=== PATIENT | female | born 1975 | race Caucasian/White ===

== ENCOUNTER 2017-06-14 06:08 | Inpatient (IN) | payer OTHER ==
[2017-06-14 06:46] VITALS: BMI 32.4
[2017-06-14] MEDS ORDERED: Carboprost 250 MCG/ML AMP IM PRN (07:36)
[2017-06-14] MEDS ORDERED: LR / Pitocin 40 units/1000 ml 1,000 ML IV PRN (07:36)
[2017-06-14] MEDS ORDERED: Lidocaine 1% (PF) 30 ML VIAL SC PRN (07:36)
[2017-06-14] MEDS ORDERED: Ondansetron HCl/PF 4 MG/2 ML Vial IVP PRN ×2 (07:36→10:40)
[2017-06-14] MEDS ORDERED: Misoprostol 200 MCG TAB PR PRN (07:36)
[2017-06-14] MEDS ORDERED: Promethazine HCl 25 MG/ML VIAL IM PRN ×2 (07:36→10:40)
[2017-06-14] MEDS ORDERED: Lactated Ringer's 1,000 ML IV SCH (07:45)
[2017-06-14 07:50] LABS: #Basophils 0.1 thou/uL (0.0-0.2); #Eosinphils 0.1 thou/uL (0.0-0.7); #Lymphocytes 1.2 thou/uL (1.20-3.40); #Monocytes 0.9 thou/uL (0.11-0.59); #Neutrophils 10.5 thou/uL (1.40-6.50); %Basophils 0.7 % (0.0-1.0); %Eosinophils 0.5 % (0.0-10.0); %Lymphocytes 9.6 % (21.0-51.0); Hematocrit 37.2 % (36.0-47.0); Mean Platelet Volume 7.4 fL (7.4-10.4); Red Blood Cell (RBC) Count 3.99 mill/uL (4.20-5.40); White Blood Cell (WBC) Count 12.8 thou/uL (4.8-10.8)
[2017-06-14] MEDS ORDERED: Labetalol HCl 100 MG/20 ML VIAL ONE (07:54)
[2017-06-14] MEDS: Acetaminophen 500 MG TAB PO PRN ×2 (08:07→19:21)
[2017-06-14] MEDS ORDERED: Morphine 4 MG/ML Carpuject SLOW IVP SCH (08:15)
[2017-06-14 08:22] LABS: ALT (SGPT) 44 U/L (8-55); AST (SGOT) 37 U/L (5-34); Alkaline Phosphatase 190 U/L (40-150); Anion Gap 13 mmol/L (10-20); BUN (Urea Nitrogen) 11 mg/dL (7.0-18.7); Bilirubin, Total 0.2 mg/dL (0.2-1.2); Calc. Creatinine Clearance 156 mL/min (70-130); Calcium 9.6 mg/dL (7.8-10.44); Carbon Dioxide 21 mmol/L (22-29); Chloride 105 mmol/L (98-107); Estimated GFR-MDRD Greater than 90; Protein, Total 7.2 g/dL (6.0-8.3)
[2017-06-14] MEDS ORDERED: Labetalol HCl 100 MG/20 ML VIAL SLOW IVP SCH (08:30)
[2017-06-14] MEDS ORDERED: Fentanyl 4 mcg/Marc 0.1% Cadd 100 ML ONE (09:34)
[2017-06-14] MEDS: LR 500 ML/Oxytocin 10 units 500 ML IV SCH ×2 (10:39→22:18)
[2017-06-14] MEDS ORDERED: Naloxone HCl 0.4 mg/ml Vial IVP PRN ×2 (10:40)
[2017-06-14] MEDS ORDERED: Eucerin (Mineral Oil/Petrolatum,White) 30 gm Jar TOP PRN (10:40)
[2017-06-14] MEDS ORDERED: ePHEDrine/0.9% NaCl/PF SYRINGE 50 mg/10 ml SLOW IVP PRN (10:40)
[2017-06-14] MEDS ORDERED: Lactated Ringer's 500 ML IV PRN (10:40)
[2017-06-14] MEDS ORDERED: Acetaminophen 325 MG TAB PO PRN (10:40)
[2017-06-14] MEDS ORDERED: diphenhydrAMINE 50 MG/ML VIAL IVP PRN (10:40)
[2017-06-14] MEDS ORDERED: Communication Order-Pharmacy FS SCH (10:45)
[2017-06-14] MEDS: Lactated Ringer's 1,000 ML IV SCH ×2 (10:48→22:02)
[2017-06-14 11:26] LABS: Bilirubin Negative (Negative); Blood, Urine Negative (Negative); Glucose, Urine (Dipstick) Negative (Negative); Ketone, Urine 15 mg/dL (Negative); Nitrite Negative (Negative); Protein, Urine (Dipstick) 100 mg/dL (Neg-Trace); Urobilinogen 0.2 mg/dL (0.2-1.0)
[2017-06-14 11:28] LABS: Bacteria/HPF None Seen HPF (None Seen); Hyaline Casts/LPF 0-3 HYALINE CAST LPF (0-3 Hyaline); RBC/HPF 0-3 HPF (0-3); Squamous Epithelial 0-3 HPF (0-3); WBC/HPF 0-3 HPF (0-3)
[2017-06-14] MEDS: Fentanyl 4mcg/Marcaine 0.1% Cassette 100 ML EPIDURAL SCH (17:43)
[2017-06-15] MEDS ORDERED: Calcium Carbonate 500 MG ChewTAB PO PRN (00:15)
[2017-06-15] MEDS: Fentanyl 4mcg/Marcaine 0.1% Cassette 100 ML EPIDURAL SCH ×2 (01:01→05:26)
[2017-06-15] MEDS: Lactated Ringer's 1,000 ML IV SCH ×2 (06:08→21:57)
[2017-06-15] MEDS: Dextrose 5%-Lactated Ringers 1,000 ML IV SCH ×2 (06:09→21:57)
[2017-06-15] MEDS ORDERED: Carboprost 250 MCG/ML AMP ONE (07:54)
--- NOTE | 2017-06-15 08:39 | PDOC.LDPN ---
Labor & Delivery Progress Note - Subjective Subjective: comfortable - Objective Vital signs reviewed and normal: yes General: resting Dilation: 10 Effacement: 100% Station: 1+ FHT: category 1 Redby contractions every: 4 - Assessment (1) 41 weeks gestation of Code(s): Z3A.41 - 41 WEEKS GESTATION OF Current Visit: Yes Status : Acute Plan: continue plan of care -: Pt was admitted yesterday by [facility] w PROM and has slowly progressed to 10cm/100/+ 1. FHT reassuring, pushing technique discussed. Transition to 2nd stage.
[2017-06-15] MEDS ORDERED: Bicitra 30 ML UDCUP PO SCH (12:00)
[2017-06-15] MEDS ORDERED: CEFAZOLIN/Water 2 GM/20 ML SYRINGE SLOW IVP SCH (12:00)
--- NOTE | 2017-06-15 12:10 | PDOC.LDPN ---
Labor & Delivery Progress Note - Subjective Subjective: comfortable - Objective Vital signs reviewed and normal: yes General: breathing through contractions FHT: category 1 - Assessment (1) 41 weeks gestation of Code(s): Z3A.41 - 41 WEEKS GESTATION OF Current Visit: Yes Status : Acute Plan: other -: A?P: Pushing x 2 hrs with minimal descent. Discussed continue x 1 hr, reevaluate, CS if arrest of descent noted.
--- NOTE | 2017-06-15 12:33 | PDOC.LDPN ---
Labor & Delivery Progress Note - Subjective Subjective: comfortable - Objective Vital signs reviewed and normal: yes General: resting - Assessment (1) 41 weeks gestation of Code(s): Z3A.41 - 41 WEEKS GESTATION OF Current Visit: Yes Status : Acute Plan: other -: A/P: Pt request CS, continued pushing with no descent noted, risk and benefits discussed. To OR for arrest of 2nd stage.
[2017-06-15] MEDS ORDERED: Fentanyl 100 MCG/2 ML VIAL ONE (12:36)
[2017-06-15] MEDS ORDERED: ePHEDrine/0.9% NaCl/PF SYRINGE 50 mg/10 ml ONE (13:08)
[2017-06-15] MEDS ORDERED: Oxytocin 10 UNITS/ML VIAL ONE (13:15)
[2017-06-15] MEDS ORDERED: Ondansetron HCl/PF 4 MG/2 ML Vial ONE ×2 (13:15→14:05)
[2017-06-15] MEDS ORDERED: Morphine PF 1 MG/ML SYR ONE ×2 (13:16→13:17)
--- NOTE | 2017-06-15 13:16 | HP ---
DATE OF SERVICE: 06/14/2017 CHIEF COMPLAINT: Leakage of fluid. HISTORY OF PRESENT ILLNESS: At the time of presentation, Kortney is a 42-year-old 1, para 0 female at 41 weeks 0 days who presents with complaints of leakage of clear fluid since 03:15 this mor maia. She denies any vaginal bleeding. She reports good movement. She does report some mild contractions that started after she broke her bag of water. Patient also complains of headache and d ifficulty catching her breath approximately 6 o'clock this morning. She also reports some nausea and vomiting. She denies any diarrhea or scotomata. She denies any other cardiovascular or respiratory complaints. Of note, patient was scheduled for induction of labor tonight. Limited review of systems as per HPI. HISTORY: Please see labor and delivery admission record included by reference. PHYSICAL EXAMINATION: VITAL SIGNS: Blood pressure is 140s-170s/80s-100s, pulse 80s, respiratory rate 18, temperature 98.5. GENERAL: Nontoxic appearing female in no acute distress. Obstetric heart tracing is 120s and reactive. Tocodynamometer shows contractions every 3-5 minutes. CHEST: Clear to auscultation. CARDIOVASCULAR: Regular rate and rhythm. ABDOMEN: Gravid, nontender in the right upper quadrant, nondistended, no rebound, no guarding. EXTREMITIES: Without cyanosis or clubbing. There is 1+ edema. NEUROLOGIC: Alert and oriented x3. No focal deficits. ASSESSMENT: 1. Term intrauterine with category 1 tracing. 2. Rupture of membranes. The patient's cervix is currently 1 cm dilated. She will be reexamined in approximately 2 hours and if unchanged, induction will be initiated at that time. 3. Gestational hypertension, possible preeclampsia. CBC, CMP and urine protein creatinine ratio ord ered in addition to the routine admission labs. Additionally, patient was given 1 dose of labetalol 10 mg IV for severe range of blood pressures. Should the patient's blood pressures require any furth er treatment or it shows lab work just HELLP syndrome, she will be placed on magnesium. Questions we re answered to patient's and her 's satisfaction.
--- NOTE | 2017-06-15 14:05 | PDOC.OPDEL ---
OB Operative/Delivery Note Delivery Dr/Surgeon: Evert Assist: Praveena Pre-Delivery Diagnosis: other (failed 2nd stage) Weeks gestation: 41 Anesthesia: epidural - Findings A Sex: male Weight: 9 lb 1 oz - 1 min: 8 - 5 min: 9 - Additional Findings/Plan Placenta delivered: manual removal Repaired Obstetrical Laceration: none findings: low transverse hysterotomy without extension Estimated blood loss: 800ml Compilations/Other Findings: concern for cross contamination of cervix/vag sergio during the case, Clindamycin ordered for prophylaxis Post delivery plan: routine recovery
[2017-06-15] MEDS ORDERED: Clindamycin/D5W 900 MG in Premix Bag 1 BAG IVPB SCH (14:30)
--- NOTE | 2017-06-15 14:43 | OP ---
DATE OF PROCEDURE: 06/14/2017 PREOPERATIVE DIAGNOSES: 1. A 42-year-old G1 at 41 weeks. 2. Arrest of descent. PROCEDURES PERFORMED: Primary low transverse section. SURGEON: Suraj Loyd D.O. AUTO PARTS PROFESSIONAL: Matteo Grissom M.D. POSTOPERATIVE DIAGNOSIS: A 42-year-old status post primary low transverse section. COMPLICATIONS: None. ESTIMATED BLOOD LOSS: 800 mL. OPERATIVE FINDINGS: 1. Low transverse hysterotomy without extension. 2. Normal-appearing uterus, tubes, and ovaries bilaterally. 3. Adherent placental membranes removed from the uterus with ring forceps and curettage with dry lap , vigorous male , weight 9 pounds 1 ounce, Apgars 8 and 9, to nursery. PROCEDURE DETAILS: The patient was taken back to the OR with IV fluids running. Once she was in the operating room, she was placed in dorsal supine position with a left lateral tilt. The epidural had been dosed and a Buck catheter had previously been placed and was noted to be draining a light bloo d-tinged colored urine. The abdomen was prepped and draped in normal fashion for section. The surgeons were scrubbed in. The abdomen was tested and anesthesia was found to be adequate. A Pf annenstiel skin incision was made with the scalpel. The skin incision was carried down through the s ubcutaneous tissue until the fascia was reached. Once the fascia was reached, it was incised in the midline and extended superior laterally using curved Cuellar scissors. Yolanda clamps were then placed o n the superior border of the fascia, which was sharply and bluntly dissected off the rectus abdominis muscles. In similar fashion, Yolanda clamps were placed on the inferior border of the fascia, which was dissected down towards the pubic symphysis. The rectus muscles and peritoneum were entered and b luntly stretched. The bladder was noted to be edematous and the lower uterine segment was noted to b e thin on palpation. A bladder flap was created using Metzenbaum scissors and the bladder was dissec martine away from the planned hysterotomy site. A low transverse hysterotomy was made with the scalpel. The hysterotomy was bluntly entered with clear fluid noted and stretched superolaterally using the K err maneuver. The infant's head was then delivered without difficulty through the hysterotomy follow ed by the body. A double nuchal cord was noted and was reduced after delivery of the head before del lolita of the body. The cord was doubly clamped and cut. Nose and mouth were suctioned and the infan t was handed off to special care nurses in attendance. Cord blood was collected. The placenta was d elivered. Trailing membranes of the placenta were noted to be densely adhered to the uterine decidua and were removed with ring forceps and gentle curettage with a sterile sponge. After the placenta m embranes were removed, the hysterotomy was inspected, no extensions were noted; however, the cervix w as easily visualized through the hysterotomy. Concerns for possible vaginal contamination due to the proximity of the cervix to the hysterotomy was discussed and a prophylactic dose of clindamycin will be ordered. The hysterotomy was closed with Monocryl suture in a running lock fashion. After closu re of the hysterotomy, it was inspected and noted to be hemostatic. The fundus was massaged and note d to be firm. The hysterotomy and pericolic gutters were copiously irrigated and suctioned dry. The hysterotomy was inspected again with no areas of bleeding noted. The rectus muscles were inspected as well as the fascia with no bleeding noted. The fascia was closed with PDS suture in a running fas hion from corner to corner. The subcutaneous tissue was irrigated and dried, and small areas of blee ding that were seen were controlled with Bovie cauterization. Subcutaneous tissue was reapproximated with chromic suture and the skin was closed with 4-0 Monocryl. Dermabond dressing was applied over the skin incision. The uterus was noted to be firm again at the end of the case. The patient tolera martine the procedure well. There were no complications.
[2017-06-15] MEDS ORDERED: Meperidine HCl/PF 25 MG/ML VIAL SLOW IVP PRN (15:34)
[2017-06-15] MEDS ORDERED: HYDROmorphone 2 MG/ML VIAL SLOW IVP PRN (15:34)
[2017-06-15] MEDS ORDERED: Ondansetron HCl/PF 4 MG/2 ML Vial IVP PRN ×3 (15:34→16:27)
[2017-06-15] MEDS ORDERED: Ketorolac Tromethamine 30 MG/ML VIAL ONE (15:35)
[2017-06-15] MEDS ORDERED: Ketorolac Tromethamine 30 MG/ML VIAL IVP SCH (15:45)
[2017-06-15] MEDS ORDERED: Lanolin Ointment 7 GM TUBE TOP PRN (15:47)
[2017-06-15] MEDS ORDERED: Lactated Ringer's 1,000 ML IV SCH (15:47)
[2017-06-15] MEDS ORDERED: Promethazine HCl 25 MG/ML VIAL IM PRN ×2 (15:47→16:27)
[2017-06-15] MEDS ORDERED: diphenhydrAMINE 25 MG CAP PO PRN (15:47)
[2017-06-15] MEDS ORDERED: Bisacodyl 10 MG SUPP PR PRN (15:47)
[2017-06-15] MEDS ORDERED: Simethicone Chewable 80 MG TAB PO PRN (15:47)
[2017-06-15] MEDS ORDERED: diphenhydrAMINE 50 MG/ML VIAL IVP PRN (16:27)
[2017-06-15] MEDS ORDERED: Eucerin (Mineral Oil/Petrolatum,White) 30 gm Jar TOP PRN (16:27)
[2017-06-15] MEDS ORDERED: Naloxone HCl 0.4 mg/ml Vial IVP PRN ×2 (16:27)
[2017-06-15] MEDS ORDERED: Naloxone HCl 0.4 mg/ml Vial IV PRN (16:27)
[2017-06-15] MEDS ORDERED: Promethazine HCl 25 MG SUPP PR PRN (16:27)
[2017-06-15] MEDS ORDERED: Communication Order-Pharmacy FS SCH (16:30)
[2017-06-15] MEDS ORDERED: LR / Pitocin 40 units/1000 ml 1,000 ML IV SCH (18:00)
[2017-06-15] MEDS ORDERED: Morphine PF 1 MG/ML SYR IVP PRN (18:18)
[2017-06-15] MEDS ORDERED: Bupivacaine HCl 0.5%/Epinephrine 1:200,000/PF 30 ml Vial ONE (19:41)
[2017-06-15] MEDS ORDERED: Sodium Chloride 0.9% 10 ML ONE (19:42)
[2017-06-15] MEDS: Docusate (Surfak) 240 MG CAP PO SCH (21:25)
[2017-06-15] MEDS: Ferrous Sulfate 325 MG TAB PO SCH (21:26)
[2017-06-15] MEDS: Ketorolac Tromethamine 30 MG/ML VIAL IVP PRN (21:27)
[2017-06-15] MEDS ORDERED: Ibuprofen 800 MG TAB PO SCH (22:00)
[2017-06-16] MEDS: Ketorolac Tromethamine 30 MG/ML VIAL IVP PRN (03:12)
[2017-06-16 05:09] LABS: Hematocrit 29.1 % (36.0-47.0); Red Blood Cell (RBC) Count 3.08 mill/uL (4.20-5.40)
--- NOTE | 2017-06-16 08:22 | PDOC.PP ---
Post Progress Note Post Day #: 1 Subjective: doing well, very tired, ambulated to RR, pain controlled, trying to breast feeding, some latch issues PO intake tolerated: yes Flatus: no Ambulation: yes Vital Signs (12 hours) Temp Pulse Resp BP Pulse Ox 06/16/17 03:12 98.5 F 98 20 119/68 96 06/16/17 00:10 98.0 F 93 18 135/78 96 Weight Weight 195 lb - Physical Examination General: NAD Respiratory: non-labored breathing Abdominal: lochia (normal), no distention, appropriately TTP Fundus firm & at: below umb Extremities: negative homans (B) Skin: CS incision dry & intact, no rash Neurological: no gross focal deficits Psychiatric: A&Ox3, normal affect Result Diagrams: 06/16/17 04:43 06/14/17 07:15 Additional Labs: Post Labs Blood Type O POSITIVE 06/14/17 07:15 Hep Bs Antigen Non-Reactive S/CO (NonReactive) 06/14/17 07:15 (1) 41 weeks gestation of Code(s): Z3A.41 - 41 WEEKS GESTATION OF Status: Acute (2) Delivered by section Code(s): O82 - ENCOUNTER FOR DELIVERY WITHOUT INDICATION Status: Acute - Assessment/Plan A/P: POD 1 sp 1LTCS for arrest of descent. Doing well, LC pending, advancing orders.
[2017-06-16] MEDS ORDERED: Measles/Mumps/Rubella 10 MCG/0.5 ML VIAL SC ONE (09:00)
[2017-06-16] MEDS: Ferrous Sulfate 325 MG TAB PO SCH ×2 (09:52→21:32)
[2017-06-16] MEDS: Prenatal Vitamin 1 TAB PO SCH (09:52)
[2017-06-16] MEDS: Docusate (Surfak) 240 MG CAP PO SCH ×2 (09:53→21:32)
[2017-06-16] MEDS: Acetaminophen/Codeine 30-300mg Tablet PO PRN ×4 (09:53→23:13)
[2017-06-16] MEDS: Ibuprofen 800 MG TAB PO SCH ×2 (14:47→21:33)
[2017-06-17] MEDS: Acetaminophen/Codeine 30-300mg Tablet PO PRN ×5 (03:18→22:44)
[2017-06-17] MEDS: Ibuprofen 800 MG TAB PO SCH ×3 (06:07→22:34)
[2017-06-17] MEDS: Ferrous Sulfate 325 MG TAB PO SCH ×2 (08:08→22:34)
[2017-06-17] MEDS: Docusate (Surfak) 240 MG CAP PO SCH ×2 (08:08→22:34)
[2017-06-17] MEDS: Prenatal Vitamin 1 TAB PO SCH (08:08)
--- NOTE | 2017-06-17 14:33 | PDOC.PP ---
Post Progress Note Post Day #: 2 Subjective: got baby to latch, very tired PO intake tolerated: yes Flatus: yes Ambulation: yes Vital Signs (12 hours) Temp Pulse Resp BP 06/17/17 12:20 98.2 F 87 18 137/85 06/17/17 12:00 98.2 F 87 18 06/17/17 08:10 97.6 F 85 18 134/85 06/17/17 08:00 97.6 F 85 18 06/17/17 05:15 97.9 F 87 20 136/74 Weight Weight 195 lb - Physical Examination General: NAD Respiratory: non-labored breathing Abdominal: lochia (normal), no distention Fundus firm & at: below umb Skin: CS incision dry & intact, no rash Psychiatric: A&Ox3, normal affect Result Diagrams: 06/16/17 04:43 06/14/17 07:15 Additional Labs: Post Labs Blood Type O POSITIVE 06/14/17 07:15 Hep Bs Antigen Non-Reactive S/CO (NonReactive) 06/14/17 07:15 (1) 41 weeks gestation of Code(s): Z3A.41 - 41 WEEKS GESTATION OF Status: Acute (2) Delivered by section Code(s): O82 - ENCOUNTER FOR DELIVERY WITHOUT INDICATION Status: Acute - Assessment/Plan A/P: POD 2, doing well. Plan for DC tomorrow.
[2017-06-18] MEDS: Acetaminophen/Codeine 30-300mg Tablet PO PRN ×4 (03:07→20:53)
[2017-06-18] MEDS: Ibuprofen 800 MG TAB PO SCH ×3 (06:52→20:33)
[2017-06-18] MEDS: Docusate (Surfak) 240 MG CAP PO SCH ×2 (08:02→20:32)
[2017-06-18] MEDS: Ferrous Sulfate 325 MG TAB PO SCH ×2 (08:02→20:33)
[2017-06-18] MEDS: Prenatal Vitamin 1 TAB PO SCH (08:02)
[2017-06-18 08:49] LABS: #Eosinphils 0.2 thou/uL (0.0-0.7); #Lymphocytes 1.7 thou/uL (1.20-3.40); #Monocytes 0.7 thou/uL (0.11-0.59); #Neutrophils 11.8 thou/uL (1.40-6.50); %Basophils 0.3 % (0.0-1.0); %Eosinophils 1.5 % (0.0-10.0); %Lymphocytes 11.8 % (21.0-51.0); %Monocytes 4.8 % (0.0-10.0); Hematocrit 29.3 % (36.0-47.0); Mean Platelet Volume 6.2 fL (7.4-10.4); Red Blood Cell (RBC) Count 3.07 mill/uL (4.20-5.40); White Blood Cell (WBC) Count 14.5 thou/uL (4.8-10.8)
--- NOTE | 2017-06-18 08:57 | PDOC.PP ---
Post Progress Note Post Day #: 3 Subjective: Pt with increase swelling, no GARCIA or blurry vision. Normal lochia. No SOB, ambulating well. PO intake tolerated: yes Flatus: yes Ambulation: yes Vital Signs (12 hours) Temp Pulse Resp BP BP Pulse Ox 06/18/17 07:52 150/85 H 06/18/17 07:48 98.0 F 93 20 179/94 H 97 06/18/17 05:00 98.3 F 99 20 153/90 H 06/17/17 23:50 98.2 F 95 20 164/85 H Weight Weight 195 lb - Physical Examination General: NAD Respiratory: non-labored breathing Abdominal: no distention Extremities: negative homans (B) (pitting edema feet, trace edema to knee and hands) Skin: CS incision dry & intact, no rash Psychiatric: A&Ox3, normal affect Result Diagrams: 06/18/17 08:36 06/14/17 07:15 Additional Labs: Post Labs Blood Type O POSITIVE 06/14/17 07:15 Hep Bs Antigen Non-Reactive S/CO (NonReactive) 06/14/17 07:15 (1) 41 weeks gestation of Code(s): Z3A.41 - 41 WEEKS GESTATION OF Status: Acute (2) Delivered by section Code(s): O82 - ENCOUNTER FOR DELIVERY WITHOUT INDICATION Status: Acute - Assessment/Plan POD3: Concern for PIH/GHTN with new onset elevated BP last 8 hrs. Discussed PIH warnings and ECONOMIC ANALYSIS DIRECTOR sx with pt, if develops will need Magnesium for seizure prophylaxis. Discussed lasix for swelling while on PP today. Will continue to monitor, CBC and CMP pending.
[2017-06-18] MEDS ORDERED: Furosemide 20 MG TAB PO SCH ×2 (09:00→17:24)
[2017-06-18 09:10] LABS: ALT (SGPT) 44 U/L (8-55); AST (SGOT) 50 U/L (5-34); Alkaline Phosphatase 168 U/L (40-150); Anion Gap 6 mmol/L (10-20); BUN (Urea Nitrogen) 8 mg/dL (7.0-18.7); Bilirubin, Total 0.3 mg/dL (0.2-1.2); Calc. Creatinine Clearance 139 mL/min (70-130); Calcium 8.9 mg/dL (7.8-10.44); Carbon Dioxide 27 mmol/L (22-29); Chloride 107 mmol/L (98-107); Estimated GFR-MDRD 86; Globulin 3.2 g/dL (2.4-3.5)
[2017-06-18] MEDS ORDERED: NIFEdipine XL 30 MG TAB PO PRN (17:25)
--- NOTE | 2017-06-18 17:32 | PDOC.EVN ---
Event Note - Event Note Event Note: Notified by pt RN today that significant diuresis today sp one dose of Lasix. Pt feeling very well. Discussed HOLD PM dose of Lasix if BP <140/90 (last BP 120s/60s) and only start Procardia tonight if severe range BP noted again.
[2017-06-19 06:06] LABS: ALT (SGPT) 46 U/L (8-55); AST (SGOT) 37 U/L (5-34); Alkaline Phosphatase 138 U/L (40-150); Anion Gap 8 mmol/L (10-20); BUN (Urea Nitrogen) 10 mg/dL (7.0-18.7); Bilirubin, Total 0.2 mg/dL (0.2-1.2); Calc. Creatinine Clearance 141 mL/min (70-130); Calcium 8.8 mg/dL (7.8-10.44); Carbon Dioxide 26 mmol/L (22-29); Chloride 104 mmol/L (98-107); Estimated GFR-MDRD 87; Protein, Total 5.6 g/dL (6.0-8.3)
[2017-06-19] MEDS: Ibuprofen 800 MG TAB PO SCH ×2 (06:20→15:06)
[2017-06-19] MEDS ORDERED: Furosemide 20 MG TAB PO SCH (08:15)
[2017-06-19] MEDS: Ferrous Sulfate 325 MG TAB PO SCH (08:35)
[2017-06-19] MEDS: Docusate (Surfak) 240 MG CAP PO SCH (08:35)
[2017-06-19] MEDS: Prenatal Vitamin 1 TAB PO SCH (08:35)
--- NOTE | 2017-06-19 08:53 | PDOC.PP ---
Post Progress Note Post Day #: 4 Subjective: feeling much better, no GARCIA, no blurry vision, less swelling, no SOB PO intake tolerated: yes Flatus: yes Ambulation: yes Vital Signs (12 hours) Temp Pulse Resp BP BP BP 06/19/17 08:00 98.0 F 91 16 143/89 H 06/19/17 05:30 98.2 F 88 20 152/87 H 06/19/17 02:10 98 162/90 H 06/19/17 02:00 97.9 F 98 20 162/90 H 06/18/17 22:00 93 20 155/87 H Weight Weight 195 lb - Physical Examination General: NAD Respiratory: clear to auscultation bilaterally, non-labored breathing Abdominal: no distention Fundus firm & at: below umb Extremities: negative homans (B) Skin: CS incision dry & intact, no rash Neurological: no gross focal deficits Psychiatric: A&Ox3, normal affect Result Diagrams: 06/18/17 08:36 06/19/17 05:20 Additional Labs: Post Labs Blood Type O POSITIVE 06/14/17 07:15 Hep Bs Antigen Non-Reactive S/CO (NonReactive) 06/14/17 07:15 (1) 41 weeks gestation of Code(s): Z3A.41 - 41 WEEKS GESTATION OF Status: Acute (2) Delivered by section Code(s): O82 - ENCOUNTER FOR DELIVERY WITHOUT INDICATION Status: Acute (3) induced hypertension Code(s): O13.9 - GESTATIONAL HTN W/O SIGNIFICANT PROTEINURIA, UNSP TRIMESTER Status: Acute - Assessment/Plan POD 4 1LCS for arrest of descent complicated PP by elevated BP/PIH noted on POD 3. Approx 8L diuresis yesterday, will repet lasix @ 10mg x 1 today. Procardia 30 mg started last night and BP mild range this AM. Plan for likely DC today if BP stable with BP check and incision check in the office on Thursday.
[2017-06-19] MEDS: Acetaminophen/Codeine 30-300mg Tablet PO PRN (16:19)
[2017-06-19 17:20] VITALS: BP 148/90; TEMP 98
== END 2017-06-19 20:07 | disposition home or self-care (01) | DRG 766 ==
LOC: L&D/OP 06:08 → L&D 06:30 → 3SW 06-15 15:57
PROVIDERS: ADMIT Obstetrics & Gynecology; ATTEND Obstetrics & Gynecology
PROC: 10D00Z1 Extraction of Products of Conception, Low, Open Approach (ICD-10-PCS; principal; 2017-06-14)
DX: O13.4 Gestational [pregnancy-induced] hypertension without significant proteinuria, complicating childbirth (principal); O42.02 Full-term premature rupture of membranes, onset of labor within 24 hours of rupture; O62.1 Secondary uterine inertia; Z3A.41 41 weeks gestation of pregnancy; Z37.0 Single live birth; O69.81X0 Labor and delivery complicated by cord around neck, without compression, not applicable or unspecified
CPT/HCPCS: 36415; 80053; 81001; 82570; 84156; 85025; 85027; 86780; 86850; 86900; 86901; 87340; 90707; A4216; J0670; J1885; J2270; J2274; J2405; J2590; J3010; J3490; J7120

== ENCOUNTER 2018-08-13 12:45 | Outpatient (CLI) | payer OTHER ==
--- NOTE | 2018-08-13 14:52 | ULT ---
LEFT BREAST DIAGNOSTIC ULTRASOUND: INDICATION: Palpable abnormality and mammographic abnormality seen in the left breast 3 o'clock position. FINDINGS: There is a 1.9 x 1.5 x 1.4 c spiculated hypoechoic shadowing mass seen within the palpable region of interest 4 cm from the nipple in the left breast 3 o'clock position. This is highly suspicious for a malignancy. Limited sonographic evaluation of the axilla demonstrates no enlarged lymph nodes. IMPRESSION: BIRADS category 5, highly suspicious for malignancy - recommend ultrasound-guided core biopsy. Findi ngs discussed with Dr. Reed by phone on 08/13/2018 at 2:00 pm. POS: OFF
== END 2018-08-13 12:46 | disposition home or self-care (01) ==
LOC: BICMAMMO 12:45
PROVIDERS: ATTEND Obstetrics & Gynecology
DX: N63.21 Unspecified lump in the left breast, upper outer quadrant (principal); Z80.3 Family history of malignant neoplasm of breast
CPT/HCPCS: 77066; G0279

== ENCOUNTER → 2018-08-17 | Day surgery (SDC) | payer OTHER ==
--- NOTE | 2018-08-17 15:21 | ULT ---
ULTRASOUND GUIDED LEFT BREAST BIOPSY: Date: 08-17-18 Provided Clinical History: Left breast mass. FINDINGS: Informed consent was obtained from the patient. Limited sonographic interrogation of the left breast at the 3 o'clock position re-demonstrates 2.2 cm irregular hypoechoic mass. The skin overlying this r egion was prepped and draped in the usual sterile manner and the soft tissues were infiltrated with 1 % buffered Lidocaine. Under continuous sonographic guidance a core biopsy device was advanced adjacen t to the lesion and four core samples were sequentially obtained. Subsequently, a biopsy clip deploym ent device was guided under real-time sonography and biopsy site marker was deployed within the lesio n. Needle was withdrawn and hemostasis was achieved. No immediate complications. Post biopsy mammogra m demonstrates appropriate clip deployment. IMPRESSION: Technically successful ultrasound guided left breast biopsy. Please correlate with histology results to follow. POS: OFF
== END ==
LOC: BICULT 12:35
PROVIDERS: ATTEND Obstetrics & Gynecology
PROC: 0HBU3ZX Excision of Left Breast, Percutaneous Approach, Diagnostic (ICD-10-PCS; principal; 2018-08-17)
DX: C50.812 Malignant neoplasm of overlapping sites of left female breast (principal)
CPT/HCPCS: 19083; 88305; 88341; 88342

== ENCOUNTER 2018-08-27 14:01 | Outpatient (CLI) | payer OTHER ==
--- NOTE | 2018-08-27 14:57 | ULT ---
LEFT AXILLARY/BREAST ULTRASOUND: Date: 08/27/18 HISTORY: Left breast cancer. Evaluate for axillary adenopathy. COMPARISON: Mammogram dated 08/13/18. TECHNIQUE: Multiplanar Bermudez scale and color Doppler images were obtained in a targeted ultrasound of the left ax illa. FINDINGS: Normal appearing lymph nodes are seen in the left axilla. All of the lymph nodes still maintain hill l fatty prashant. The largest lymph node measures 1.4 cm in greatest dimension. IMPRESSION: Lymph nodes in the left axilla appear normal on ultrasound. In addition, these look normal on her anna or mammogram and were symmetric when compared to the opposite side. POS: SEN
== END 2018-08-27 14:02 | disposition home or self-care (01) ==
LOC: BICULT 14:01
PROVIDERS: ATTEND Internal Medicine Hematology & Oncology
DX: C50.412 Malignant neoplasm of upper-outer quadrant of left female breast (principal)
CPT/HCPCS: 76999

== ENCOUNTER 2018-09-06 00:22 | Outpatient (CLI) | payer OTHER ==
[2018-09-06 12:25] LABS: BHCG - Serum Negative (NEGATIVE); Pregs Control Background? CLEAR/WHITE (CLR/WHITE); Pregs Control Bar Appear? YES (CONTROL BAR)
[2018-09-06 12:27] LABS: #Basophils 0.1 thou/uL (0.0-0.2); #Eosinphils 0.1 thou/uL (0.0-0.7); #Lymphocytes 2.5 thou/uL (1.20-3.40); #Monocytes 0.5 thou/uL (0.11-0.59); #Neutrophils 4.4 thou/uL (1.40-6.50); %Basophils 0.7 % (0.0-1.0); %Eosinophils 0.7 % (0.0-10.0); %Lymphocytes 33.6 % (21.0-51.0); %Monocytes 6.5 % (0.0-10.0); %Neutrophils 58.4 % (42.0-75.0); Hemoglobin 14.6 g/dL (12.0-16.0); Mean Corpuscular Hemoglobin 30.8 pg (27.0-31.0); Mean Corpuscular Volume 93.6 fL (78.0-98.0); Mean Platelet Volume 6.7 fL (7.4-10.4); Platelet Count 405 thou/uL (130-400); RBC Distribution Width 11.1 % (11.5-14.5); Red Blood Cell (RBC) Count 4.74 mill/uL (4.20-5.40); White Blood Cell (WBC) Count 7.5 thou/uL (4.8-10.8)
[2018-09-06 12:34] LABS: ALT (SGPT) 20 U/L (8-55); AST (SGOT) 16 U/L (5-34); Albumin 4.5 g/dL (3.5-5.0); Alkaline Phosphatase 71 U/L (40-150); Anion Gap 11 mmol/L (10-20); BUN (Urea Nitrogen) 18 mg/dL (7.0-18.7); Bilirubin, Total 0.6 mg/dL (0.2-1.2); Calc. Creatinine Clearance 0 mL/min (70-130); Calcium 9.7 mg/dL (7.8-10.44); Carbon Dioxide 25 mmol/L (22-29); Chloride 105 mmol/L (98-107); Estimated GFR-MDRD 68; Globulin 3.6 g/dL (2.4-3.5); Glucose 83 mg/dL (70-105); Potassium 3.9 mmol/L (3.5-5.1); Protein, Total 8.1 g/dL (6.0-8.3); Sodium 137 mmol/L (136-145)
== END 2018-09-06 00:23 | disposition home or self-care (01) ==
LOC: LABBT 00:22
PROVIDERS: ATTEND Surgery
DX: Z01.812 Encounter for preprocedural laboratory examination (principal); C50.912 Malignant neoplasm of unspecified site of left female breast
CPT/HCPCS: 80053; 84703; 85025

== ENCOUNTER 2018-09-08 06:39 | Day surgery (SDC) | payer OTHER ==
[2018-09-06 12:01] VITALS: BMI 26.4
[2018-09-08] MEDS ORDERED: Lidocaine 2% PF 5 ML VIAL ONE (10:46)
[2018-09-08] MEDS ORDERED: Bupivacaine HCl 0.5%/Epinephrine 1:200,000/PF 30 ml Vial ONE (10:46)
--- NOTE | 2018-09-08 10:48 | NM ---
LYMPHOSCINTIGRAPHY LEFT BREAST: HISTORY: Left breast cancer. FINDINGS: After explaining the procedure and answering all questions, the anterior aspect of the left breast wa s cleaned. Sterile technique was used to carefully inject, in four equal aliquots, a total volume of 1 mL of liquid, containing 415 microcuries of technetium 99m filtered sulfur colloid into the skin a t the 12 o'clock, 3 o'clock, 6 o'clock, and 9 o'clock periareolar positions of the left breast. The injection site was massaged by the patient, and imaging performed. Early imaging showed a focal area of increased radiotracer uptake at the axillary tail of the left br east. The skin overlying the sentinel lymph node was marked. The patient was transferred to [facility] in good condition. IMPRESSION: Technically successful lymphoscintigraphy, left breast, revealing a single axillary tail lymph node. POS: SEN
[2018-09-08] MEDS ORDERED: Midazolam HCl 2 mg/2 ml Vial ONE (11:52)
[2018-09-08] MEDS ORDERED: Fentanyl 100 MCG/2 ML VIAL ONE ×2 (12:06→13:23)
[2018-09-08] MEDS ORDERED: HYDROcodone/Acetaminophen 5/325 mg Tablet ONE (14:19)
--- NOTE | 2018-09-08 14:44 | MMO ---
MAMMOGRAPHIC GUIDED NEEDLE LOCALIZATION LEFT BREAST MASS SURGICAL SPECIMEN MAMMOGRAPHY: Date: 09/08/18 HISTORY: Left breast cancer. FINDINGS: After explaining the procedure and answering all questions, the spiculated mass and localization clip at the lateral aspect of the left breast was visualized mammographically. Sterile technique, buffere d local anesthesia, mammographic guidance, and a lateral approach were used to carefully advance a 7. 5 cm Happy Jack needle and wire through the deep margin of the spiculated mass, immediately deep to the lo calization clip. Needle and wire were secured in position and final images were marked. The patient t olerated the procedure well and was transferred in good condition. Surgical specimen mammography shows the hyperdense mass, localization clip, and localization needle a nd wire overlying the specimen. Findings were called to Dr. Rothman in the OR. IMPRESSION: Technically successful needle localization left breast mass. POS: SEN
[2018-09-08] MEDS ORDERED: Dexamethasone 20 MG/5 ML VIAL ONE (15:34)
[2018-09-08] MEDS ORDERED: Lidocaine 1% PF 5 ML VIAL ONE (15:34)
[2018-09-08] MEDS ORDERED: PHENYLEPHRINE-NS 100 MCG/ML 10 ML SYRINGE ONE (15:34)
[2018-09-08] MEDS ORDERED: Ondansetron PF 4 MG/2 ML Vial ONE (15:34)
[2018-09-08] MEDS ORDERED: PROPOFOL 200 MG/20 ML VIAL ONE (15:34)
--- NOTE | 2018-09-08 23:48 | OP ---
DATE OF PROCEDURE: 09/08/2018 PREOPERATIVE DIAGNOSES: Left breast cancer, ER/CO positive, HER2/lizandro negative, clinical stage [id number]. POSTOPERATIVE DIAGNOSES: Left breast cancer, ER/CO positive, HER2/lizandro negative, clinical stage [id number]. PROCEDURE PERFORMED: 1. Left partial mastectomy after needle localization. 2. Left deep axillary node biopsy using sentinel node protocol. ANESTHESIA: General. ESTIMATED BLOOD LOSS: Minimal. COMPLICATIONS: None. SPECIMEN: Left breast mass marked with two short superior, one long lateral, sent to Path for final diagnosis. Two sentinel nodes found and sent to Path for final diagnosis. DESCRIPTION OF PROCEDURE: The patient underwent preop placement of needle localization wire in the area of previous biopsy as well as lymphoscintigraphy, which showed uptake in the left axilla. She was then taken to the operating room where her left chest, arm, axilla, neck were all prepped and draped in a sterile fashion. Before the prep, 5 mL of methylene blue dye was infiltrated under the nipple and massaged for 10 minutes. Incision was made on the inferior left axillary hairline. Clavipectoral fascia was entered using the Neoprobe, an area of increased radio activity found, it had blue in the tissues as well. This was removed with high counts in the 400 to 500s on the back table. There was an additional area with counts in the low one 100s. This was removed as sentinel node as well. The tissue was all sent to Path for final diagnosis. The background counts then dropped to near zero. The axilla was irrigated. Local anesthetic was applied. The wound was closed using 3-0 Vicryl, 4-0 Monocryl, and Dermabond. Next, transverse incision was made over the palpable abnormality in the area of needle localization wire in the upper outer quadrant of the left breast. Flaps were raised superior, medially, inferiorly and laterally around the end of the needle localization wire. The specimen was marked with two short superior, one long lateral and sent to Path for final diagnosis. The wound was irrigated. Local anesthetic was applied. The specimen x-ray revealed the previous biopsy clip to be in the specimen. The incision was closed using 3-0 Vicryl, 4-0 Monocryl and Dermabond. The patient was sent to Recovery in stable condition. All instrument counts, needle counts and lap counts are correct. Job ID: [id number]
== END 2018-09-08 15:20 | disposition home or self-care (01) ==
LOC: SDC 06:39
PROVIDERS: ATTEND Surgery
PROC: 07B60ZX Excision of Left Axillary Lymphatic, Open Approach, Diagnostic (ICD-10-PCS; principal; 2018-09-08)
PROC: 0HBU0ZZ Excision of Left Breast, Open Approach (ICD-10-PCS; principal; 2018-09-08)
DX: C50.812 Malignant neoplasm of overlapping sites of left female breast (principal); C77.3 Secondary and unspecified malignant neoplasm of axilla and upper limb lymph nodes; Z17.0 Estrogen receptor positive status [ER+]; Z98.890 Other specified postprocedural states
CPT/HCPCS: 19281; 76098; 78195; 88307; 88341; 88342; A9541; J0670; J1100; J2001; J2250; J2405; J2704; J3010; Q9968

== ENCOUNTER 2018-09-23 07:56 | Day surgery (SDC) | payer OTHER ==
[2018-09-22 11:48] VITALS: BMI 25.7
[2018-09-23] MEDS ORDERED: Fentanyl 100 MCG/2 ML VIAL ONE (10:13)
[2018-09-23] MEDS ORDERED: Bupivacaine/Epinephrine 0.25% 30 ML VIAL ONE (10:16)
[2018-09-23] MEDS ORDERED: Lidocaine 2% PF 5 ML VIAL ONE (10:17)
[2018-09-23] MEDS ORDERED: Midazolam HCl 2 mg/2 ml Vial ONE (10:31)
[2018-09-23] MEDS ORDERED: PROPOFOL 200 MG/20 ML VIAL ONE (10:33)
--- NOTE | 2018-09-23 12:43 | RAD ---
PORTABLE CHEST 1 VIEW: DATE: 09/23/2018. TIME: 10:44 a.m. HISTORY: MediPort placement, left breast cancer. FINDINGS: The heart size is normal. There is a right internal jugular Port-A-Cath with tip in the projection o f the SVC. The lungs are expanded without focal areas of consolidation, pneumothoraces, or pleural e ffusions. IMPRESSION: No radiographic evidence of acute cardiopulmonary process. POS: C
--- NOTE | 2018-09-23 13:27 | OP ---
DATE OF PROCEDURE: 09/23/2018 PREOPERATIVE DIAGNOSIS: Left breast cancer. POSTOPERATIVE DIAGNOSIS: Left breast cancer. PROCEDURE PERFORMED: Tunnelled central line subcutaneous port (MediPort CT injectable, right internal jugular vein). ANESTHESIA: TIVA, local. ESTIMATED BLOOD LOSS: Minimal. COMPLICATIONS: None. SPECIMEN: None. FINDINGS: Tip of the catheter was at the atriocaval junction. DESCRIPTION OF PROCEDURE: The patient was taken to the operating room and laid supine on the operating room table. After general anesthetic was obtained, the bilateral neck and chest were prepped and draped in a sterile fashion. Local anesthetic was infiltrated over the right internal jugular vein. Internal jugular vein was cannulated using a 22-gauge finder needle, followed by a Seldinger needle. Wire was passed into the superior vena cava under fluoro guidance. A small jennifer was made at the wire entrance site. A separate 3-cm incision made in the right upper chest. Subcutaneous pocket was made below the lower incision, tubing for the MediPort tunneled from the inferior to superior incision. The introducer sheath was placed over the wire into the superior vena cava under fluoro guidance. The dilator and wire were removed and the end of the catheter was sewed into the sheath and the sheath was peeled away. The tip of the catheter was at the atriocaval junction. MediPort tubing was cut to fit the MediPort at the lower incision, connected to the MediPort, which was sewn to the chest wall with the Prolene suture. MediPort was flushed and estefani blood without difficulty. It was flushed with a heparin flush. The wounds were all closed using 3-0 Vicryl, 4-0 Monocryl, and Dermabond. The patient was sent to Recovery in stable condition. All instrument counts, needle counts, and lap counts were correct. Job ID: [id number]
== END 2018-09-23 13:05 | disposition home or self-care (01) ==
LOC: SDC 07:56
PROVIDERS: ATTEND Surgery
PROC: 05HM33Z Insertion of Infusion Device into Right Internal Jugular Vein, Percutaneous Approach (ICD-10-PCS; principal; 2018-09-23)
DX: C50.912 Malignant neoplasm of unspecified site of left female breast (principal); Z17.0 Estrogen receptor positive status [ER+]
CPT/HCPCS: 71045; C1788; J1642; J2001; J2250; J2704; J3010

== ENCOUNTER 2018-10-04 09:53 | Day surgery (SDC) | payer OTHER ==
[2018-10-04] MEDS ORDERED: Dexamethasone Sod Phosphate 20 MG in Sodium Chloride 0.9% 50 ML IVPB SCH (10:00)
[2018-10-04] MEDS ORDERED: Pegfilgrastim Onpro 6 MG/0.6 ML SQ SCH (10:00)
[2018-10-04] MEDS ORDERED: Sodium Chloride 0.9% 30 ML ONE (10:00)
[2018-10-04] MEDS ORDERED: Goserelin Acetate 3.6 MG KIT SC SCH (10:00)
[2018-10-04 10:07] VITALS: BP 127/78; TEMP 98.2
[2018-10-04] MEDS ORDERED: PALONOSETRON HCL 0.05 MG/ML 5 ML VIAL IVP SCH (10:15)
[2018-10-04] MEDS ORDERED: SODIUM CHLORIDE 0.9% IVPB SCH ×2 (11:00)
[2018-10-04] MEDS ORDERED: DOCETAXEL IVPB SCH (11:00)
[2018-10-04] MEDS ORDERED: CYCLOPHOSPHAMIDE IVPB SCH (11:00)
== END 2018-10-04 14:48 | disposition home or self-care (01) ==
LOC: ONC/OP 09:53
PROVIDERS: ATTEND Internal Medicine Hematology & Oncology
DX: Z51.11 Encounter for antineoplastic chemotherapy (principal); C50.412 Malignant neoplasm of upper-outer quadrant of left female breast
CPT/HCPCS: 96367; 96375; 96377; 96413; 96417; J1100; J1453; J1642; J2469; J2505; J7050; J9070; J9171; J9202